=== PATIENT | male | born 1995 | race Caucasian/White ===

== ENCOUNTER 2017-09-12 15:26 | Emergency (ER) ==
[2017-09-12 15:30] VITALS: BP 150/89; TEMP 97.3
[2017-09-12 15:36] VITALS: BMI 23.1
--- NOTE | 2017-09-12 19:12 | ED.PDOC ---
General ED Provider: Dr. JAZMYN QUIÑONEZ Chief Complaint: Earache Stated Complaint: Ear ache. Pain in Lt external ear canal. Wears ear plugs at work and has decreased hearing after ear popped 2 days ago. Can not hear out of lt ear. Bought ear solution but not able to place in EAC. Has not previously had ears irrigated. NO prior problems. Time Seen by Physician: 18:30 Mode of Arrival: Walk-In Information Source: Patient Exam Limitations: Clinical condition Referred to ED by: Other (self) Nursing and Triage Documentation Reviewed and Agree: Yes Reviewed sepsis parameters & appropriate labs ordered?: Yes System Inflammatory Response Syndrome: Not Applicable Sepsis Protocol: For patient's 13 years and over: Temp is 96.8 and below OR 101 and greater Pulse >90 BPM Resp >20/minute Acutely Altered Mental Status Are patient's symptoms suggestive of a new infection, such as: -Pneumonia -Skin, Soft Tissue -Endocarditis -UTI -Bone, Joint Infection -Implantable Device -Acute Abdominal Infection -Wound Infection -Meningitis -Blood Stream Catheter Infection -Unknown System Inflammatory Response Syndrome: Not Applicable EENT Complaint Exam - Ear Complaint/Exam Symptoms Are: Still present Timing: Constant Initial Severity: Moderate Current Severity: Moderate Character: Reports: Sharp pain, Throbbing pain Aggravating: Reports: Tugging on ear Alleviating: Reports: None Associated Signs and Symptoms: Reports: Hearing loss, Pain to external ear, Pain to external face Related History: Denies: Similar Episode Ear Surgical History: None Vesicles to External Pinna: No Vesicles to Tragus: No TMJ Tenderness: Left Mastoid Tenderness: None Tragal Tenderness: Left Review of Systems - Review Of Systems Constitutional: Reports: No symptoms Eyes: Reports: No symptoms Ears, Nose, Mouth, Throat: Reports: No symptoms, Ear pain (ear popped; hearing diminished) Respiratory: Reports: No symptoms Cardiac: Reports: No symptoms GI: Reports: No symptoms : Reports: No symptoms Musculoskeletal: Reports: No symptoms Skin: Reports: No symptoms Neurological: Reports: No symptoms Endocrine: Reports: No symptoms Hematologic/Lymphatic: Reports: No symptoms All Other Systems: Reviewed and Negative Past Medical History - Past Medical History Endocrine: Reports: None Cardiovascular: Reports: None, Other (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") Respiratory: Reports: None Hematological: Reports: None Gastrointestinal: Reports: None Genitourinary: Reports: None Neuro/Psych: Reports: None Musculoskeletal: Reports: None Cancer: Reports: None Other Pertinent Past Medical History: poison SUKHDEV "I don't care for shots" - Surgical History General Surgical History: Reports: None - Family History Family History: Reports: None - Social History Smoking Status: Never smoker, Chews tobacco Hx Substance Use: No Alcohol Screening: None Physical Exam - Physical Exam Appearance: Well-appearing, No pain distress Ill-appearing: None Pain Distress: Mild Eyes: COSMO, EOMI, Conjunctiva clear ENT: Ears normal, Nose normal, Oropharynx normal, TMs Occluded (cerumenosis bilat LT > RT) Respiratory: Airway patent, Breath sounds clear, Breath sounds equal, Respirations nonlabored Cardiovascular: RRR, Pulses normal, No rub, No murmur GI/: Soft, Nontender, No masses, Bowel sounds normal, No Organomegaly Musculoskeletal: Normal strength Skin: Warm, Dry, Normal color Neurological: Sensation intact, Motor intact, Reflexes intact, Cranial nerves intact, Alert, Oriented Psychiatric: Affect appropriate Procedures - Cerumen Removal Location: Left ear Instrument Used: Wax curette, Syringe Irrigation Used: Yes Results: Wax Pain Successfully Reduced: No (Needs additional cerumen removed. impacted deep in EAC) Critical Care Note - Critical Care Note Total Time (mins): 0 Course - Course Vital Signs: Temp Pulse Resp BP Pulse Ox 09/12/17 15:26 97.3 F L 77 16 150/89 H 99 Departure - Departure Time of Disposition: 19:15 Disposition: HOME SELF-CARE Discharge Problem: Otitis externa, Ceruminosis Instructions: Otitis Externa (ED), Cerumen Impaction (ED) Condition: Fair Pt referred to PMD for follow-up: Yes IPMP verified?: No Prescriptions: Carbamide Peroxide [Debrox] 2 drop OT 1-2XD 10 Days #10 ml Cephalexin [Keflex] 500 mg PO BID #14 capsule Allergies/Adverse Reactions: Allergies acetaminophen [From Tylenol] Adverse Reaction (Verified 09/12/17 15:30) Hives PT STATES GETS HIVES WITH BRAND NAME TYLENOL poison sukhdev extract [Poison Sukhdev Extract] Adverse Reaction (Verified 09/12/17 15: 30) Home Medications: Ambulatory Orders Carbamide Peroxide [Debrox] 2 drop OT 1-2XD 10 Days #10 ml 09/12/17 Cephalexin [Keflex] 500 mg PO BID #14 capsule 09/12/17 Disposition Discussed With: Patient, Family
== END 2017-09-12 19:25 | disposition home or self-care (01) ==
LOC: ED 15:26
DX: H60.90 Unspecified otitis externa, unspecified ear (principal); H61.23 Impacted cerumen, bilateral; Z72.0 Tobacco use
CPT/HCPCS: 99283

== ENCOUNTER 2018-09-02 20:58 | Emergency (ER) ==
[2018-09-02 21:00] VITALS: BP 126/78; TEMP 98; BMI 23.5
--- NOTE | 2018-09-02 21:35 | ED.PDOC ---
General ED Provider: Dr. JAZMYN CLEMENT MD Chief Complaint: Hand Laceration Stated Complaint: cut my thumb at work Time Seen by Physician: 21:00 Mode of Arrival: Walk-In Information Source: Patient Exam Limitations: No limitations Nursing and Triage Documentation Reviewed and Agree: Yes Does patient meet sepsis criteria?: No If yes, has appropriate treatment been initiated?: Yes System Inflammatory Response Syndrome: Not Applicable Sepsis Protocol: For patient's 13 years and over: Temp is 96.8 and below OR 101 and greater Pulse >90 BPM Resp >20/minute Acutely Altered Mental Status Are patient's symptoms suggestive of a new infection, such as: -Pneumonia -Skin, Soft Tissue -Endocarditis -UTI -Bone, Joint Infection -Implantable Device -Acute Abdominal Infection -Wound Infection -Meningitis -Blood Stream Catheter Infection -Unknown Review of Systems - Review Of Systems Constitutional: Reports: No symptoms Eyes: Reports: No symptoms Ears, Nose, Mouth, Throat: Reports: No symptoms Respiratory: Reports: No symptoms Cardiac: Reports: No symptoms GI: Reports: No symptoms : Reports: No symptoms Musculoskeletal: Reports: No symptoms Skin: Reports: No symptoms Neurological: Reports: No symptoms Endocrine: Reports: No symptoms Hematologic/Lymphatic: Reports: No symptoms All Other Systems: Reviewed and Negative Past Medical History - Past Medical History Endocrine: Reports: None Cardiovascular: Reports: None, 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") Respiratory: Reports: None Hematological: Reports: None Gastrointestinal: Reports: None Genitourinary: Reports: None Neuro/Psych: Reports: None Musculoskeletal: Reports: None Cancer: Reports: None Other Pertinent Past Medical History: poison SUKHDEV "I don't care for shots" - Surgical History General Surgical History: Reports: None - Family History Family History: Reports: None - Social History Smoking Status: Current every day smoker, Heavy tobacco smoker Hx Substance Use: No Alcohol Screening: Occasionally - Immunizations Tetanus Shot up to Date: No (patient states that he is unsure) Physical Exam - Physical Exam Appearance: Well-appearing, Thin Ill-appearing: None Pain Distress: Mild Eyes: COSMO ENT: Ears normal, Nose normal, Oropharynx normal Neck: Supple Respiratory: Airway patent, Breath sounds clear, Breath sounds equal, Respirations nonlabored Cardiovascular: RRR, Pulses normal, No rub, No murmur GI/: Soft, Nontender, No masses, Bowel sounds normal, No Organomegaly Musculoskeletal: Normal strength, ROM intact, No edema, No calf tenderness Skin: Warm (small 2cm thin flap lac to left thumb), Dry, Normal color Neurological: Sensation intact, Motor intact, Reflexes intact, Cranial nerves intact, Alert, Oriented Psychiatric: Affect appropriate, Mood appropriate Procedures - Laceration/Wound Repair laceration Wound Description: Flap Wound Length (cm): 2 Wound Depth: 1mm Wound Explored: Clean Wound Irrigated: Yes Wound Prep: Saline, Betadine Wound Margins: Other Wound Repaired With: Steri-strips Sterile Dressing Applied?: Yes Critical Care Note - Critical Care Note Total Time (mins): 0 Course - Course Vital Signs: Temp Pulse Resp BP Pulse Ox 09/02/18 20:58 98 F 72 16 126/78 99 Departure - Departure Time of Disposition: 21:45 Disposition: HOME SELF-CARE Discharge Problem: Laceration of thumb, left Instructions: Finger Laceration (ED) Condition: Good Pt referred to PMD for follow-up: Yes IPMP verified?: No Prescriptions: Cephalexin 500 mg PO BID 7 Days #14 tablet NS Allergies/Adverse Reactions: Allergies acetaminophen [From Tylenol] Adverse Reaction (Verified 09/02/18 21:01) Hives PT STATES GETS HIVES WITH BRAND NAME TYLENOL poison sukhdev extract [Poison Sukhdev Extract] Adverse Reaction (Verified 09/02/18 21: 01) Home Medications: Ambulatory Orders Cephalexin 500 mg PO BID 7 Days #14 tablet NS 09/02/18
== END 2018-09-02 22:00 | disposition home or self-care (01) ==
LOC: ED 20:58
DX: S61.012A Laceration without foreign body of left thumb without damage to nail, initial encounter (principal); W45.8XXA Other foreign body or object entering through skin, initial encounter
CPT/HCPCS: 99282